=== PATIENT | female | born 1975 | race Caucasian/White ===

== ENCOUNTER → 2017-09-02 | Outpatient (CLI) | payer MEDICAID ==
--- NOTE | 2017-09-02 12:40 | RADIOLOGY REPORT (SQ) ---
EXAM DESCRIPTION: U/S ABDOMEN LIMITED W/O DOP COMPLETED DATE/TIME: 09/02/2017 11:46 am REASON FOR STUDY: R11.0 NAUSEA R10.13 EPIGASTRIC PAIN R10.13 EPIGASTRIC PAIN R11.0 NAUSEA COMPARISON: None. TECHNIQUE: Dynamic and static grayscale images acquired of the abdomen and recorded on PACS. Additio nal selected color Doppler and spectral images recorded. LIMITATIONS: None. FINDINGS: PANCREAS: Midline pancreas unremarkable. LIVER: Normal size, no masses. Liver is hypoechoic which could be seen in hepatitis or diffuse infla mmation. No biliary ductal dilatation. LIVER VASCULATURE: Normal directional flow of the main portal vein and hepatic veins. GALLBLADDER: No stones. Normal wall thickness. No pericholecystic fluid. ULTRASOUND-DETECTED MALCOLM'S SIGN: Negative. INTRAHEPATIC DUCTS AND COMMON DUCT: CBD and intrahepatic ducts normal caliber. No filling defects. INFERIOR VENA CAVA: Normal flow. AORTA: No aneurysm. RIGHT KIDNEY: Normal size. Normal echogenicity. No solid or suspicious masses. No hydronephrosis. No calcifications. PERITONEAL AND RIGHT PLEURAL SPACE: No ascites or effusions. OTHER: No other significant findings. IMPRESSION: Liver is hypoechoic which could be seen in hepatitis. No liver masses. No gross biliar y ductal dilatation. No gallstones TECHNICAL DOCUMENTATION: JOB ID: [id number] [employer]- All Rights Reserved Reading location - IP/workstation name: [email or web address]
== END ==
LOC: RAD 13:37
PROVIDERS: ATTEND Internal Medicine Gastroenterology
DX: R11.0 Nausea (principal); R10.13 Epigastric pain
CPT/HCPCS: 76705

== ENCOUNTER → 2017-09-04 | Outpatient (CLI) | payer MEDICAID ==
--- NOTE | 2017-09-04 15:28 | RADIOLOGY REPORT (SQ) ---
EXAM DESCRIPTION: NM HIDA SCAN WITH CCK COMPLETED DATE/TIME: 09/04/2017 3:11 pm REASON FOR STUDY: R11.0 NAUSEA R10.13 EPIGASTRIC PAIN R11.0 NAUSEA R10.13 EPIGASTRIC PAIN COMPARISON: None. RADIONUCLIDE AND DOSE: DOSAGE RADIONUCLIDE: 5.32 millicuries Tc99m Mebrofenin. DOSAGE CCK: 1.3 micrograms. DOSAGE MORPHINE: Not required. The route of agent administration: Intravenous TECHNIQUE: Serial imaging right upper quadrant up to 60 minutes following injection of radionuclide. CCK injected after gallbladder visualized. LIMITATIONS: None. FINDINGS: LIVER: Normal visualization without areas of photopenia. INTRAHEPATIC BILE DUCTS: Normal size and no delay in visualization. COMMON BILE DUCT: Normal without dilatation. GALLBLADDER: Normal visualization. Calculated ejection fraction of 50%. Normal range is greater th an 35%. PHYSICAL RESPONSE: Patients presenting complaint wall reproduced. OTHER: No other significant finding. IMPRESSION: NORMAL STUDY WITHOUT CYSTIC OR COMMON DUCT OBSTRUCTION. NORMAL GALLBLADDER EJECTION FRA CTION. NO EVIDENCE FOR BILIARY DYSKINESIS. TECHNICAL DOCUMENTATION: JOB ID: [id number] [employer]- All Rights Reserved Reading location - IP/workstation name: [email or web address]
== END ==
LOC: RAD 13:37
PROVIDERS: ATTEND Internal Medicine Gastroenterology
DX: R11.0 Nausea (principal); R10.13 Epigastric pain
CPT/HCPCS: 78227; J2805; A9537; Q9969

== ENCOUNTER 2017-12-16 10:46 | Emergency (ER) | payer MEDICAID ==
[2017-12-16 11:49] LABS: APPEARANCE,URINE SLIGHTLY-CLOUDY; BILIRUBIN,URINE NEGATIVE (NEGATIVE); COLOR,URINE STRAW; GLUCOSE, URINE NEGATIVE (NEGATIVE); KETONES,URINE NEGATIVE (NEGATIVE); LEUKOCYTE ESTERASE,URINE NEGATIVE (NEGATIVE); NITRITE,URINE NEGATIVE (NEGATIVE); PROTEIN,URINE NEGATIVE (NEGATIVE); URINE SPECIFIC GRAVITY 1.004; UROBILINOGEN,URINE NEGATIVE mg/dL (<2.0)
[2017-12-16] MEDS ORDERED: ONDANSETRON HCL INJ/PF 4 MG/2 ML SDV IV ONE ×2 (13:11→19:39)
[2017-12-16] MEDS ORDERED: DICYCLOMINE HCL INJ 20 MG/2 ML AMPULE IM ONE (13:11)
--- NOTE | 2017-12-16 13:13 | ER Document Report ---
ED Medical Screen (RME) - General Chief Complaint: Lower Abdominal Pain Stated Complaint: ABDOMINAL PAIN Time Seen by Provider: 12/16/17 13:05 TRAVEL OUTSIDE OF THE [place] IN LAST 30 DAYS: No - HPI Notes: 12/16/17 13:12 History of diverticulitis with having right lower quadrant abdominal pain last 2 days. Did take leftover Cipro and Flagyl will be prior to arrival. - Related Data Allergies/Adverse Reactions: IVP dye Adverse Reaction (Uncoded 12/16/17 11:11) Past Medical History - Social History Chew tobacco use (# tins/day): No Frequency of alcohol use: None Drug Abuse: None - Past Medical History Cardiac Medical History: Denies: Hx Coronary Artery Disease, Hx Heart Attack, Hx Hypertension Pulmonary Medical History: Denies: Hx Asthma, Hx Bronchitis, Hx COPD, Hx Pneumonia Neurological Medical History: Denies: Hx Cerebrovascular Accident, Hx Seizures Renal/ Medical History: Denies: Hx Peritoneal Dialysis Musculoskeltal Medical History: Denies Hx Arthritis Past Surgical History: Denies: Hx Hysterectomy, Hx Pacemaker - Immunizations Hx Diphtheria, Pertussis, Tetanus Vaccination: Yes Review of Systems - Review of Systems Constitutional: No symptoms reported EENT: No symptoms reported Cardiovascular: No symptoms reported Respiratory: No symptoms reported Gastrointestinal: Abdominal pain Genitourinary: No symptoms reported Female Genitourinary: No symptoms reported Musculoskeletal: No symptoms reported Skin: No symptoms reported Hematologic/Lymphatic: No symptoms reported Neurological/Psychological: No symptoms reported Physical Exam - Vital signs Vitals: Temp Pulse Resp BP Pulse Ox 98.3 F 86 16 118/94 H 99 12/16/17 11:18 12/16/17 11:18 12/16/17 11:18 12/16/17 11:18 12/16/17 11:18 - Cardiovascular Rhythm: Regular Heart sounds: Normal auscultation Course - Vital Signs Vital signs: Temp Pulse Resp BP Pulse Ox 98.3 F 86 16 118/94 H 99 12/16/17 11:18 12/16/17 11:18 12/16/17 11:18 12/16/17 11:18 12/16/17 11:18 Doctor's Discharge - Discharge Referrals: AIME TY MD [Primary Care Provider] - Follow up as needed
[2017-12-16] MEDS ORDERED: NORMAL SALINE 1000 ML 1,000 ML IV ONE (13:52)
[2017-12-16 14:08] LABS: ABSOLUTE EOSINOPHILS # (AUTO) 0.1 10^3/uL (0.0-0.6); ABSOLUTE LYMPHOCYTES (AUTO) 2.1 10^3/uL (0.5-4.7); ABSOLUTE MONOCYTES (AUTO) 0.5 10^3/uL (0.1-1.4); ABSOLUTE NEUT (AUTO) 6.6 10^3/uL (1.7-8.2); BASOPHILS % (AUTO) 0.4 % (0-2); EOSINOPHILS % (AUTO) 1.3 % (0-6); HEMATOCRIT 37.8 % (36.0-47.0); HEMOGLOBIN 12.4 g/dL (12.0-15.5); MEAN CORPUSCULAR HEMOGLOBIN 24.4 pg (27.0-33.4); MEAN CORPUSCULAR HGB CONC 32.8 g/dL (32.0-36.0); MEAN CORPUSCULAR VOLUME 74 fl (80-97); MONOCYTES % (AUTO) 5.2 % (3-13); PLATELET COUNT 243 10^3/uL (150-450); RED CELL DISTRIBUTION WIDTH 14.8 % (11.5-14.0); SEGMENTED NEUTROPHILS % (AUTO) 71.1 % (42-78); TOTAL CELLS COUNTED % (AUTO) 100 %; WHITE BLOOD COUNT 9.3 10^3/uL (4.0-10.5)
[2017-12-16 14:17] LABS: ALANINE AMINOTRANSFERASE 18 U/L (9-52); ALBUMIN 3.7 g/dL (3.5-5.0); ALKALINE PHOSPHATASE 46 U/L (38-126); ANION GAP 9 (5-19); ASPARTATE AMINO TRANSFERASE 16 U/L (14-36); BILIRUBIN,DIRECT 0.2 mg/dL (0.0-0.4); BILIRUBIN,TOTAL 0.5 mg/dL (0.2-1.3); BLOOD UREA NITROGEN 6 mg/dL (7-20); CALCIUM 8.8 mg/dL (8.4-10.2); CARBON DIOXIDE 21 mmol/L (22-30); CHLORIDE 111 mmol/L (98-107); GLUCOSE 110 mg/dL (75-110); POTASSIUM 4.2 mmol/L (3.6-5.0); SODIUM 141.1 mmol/L (137-145); TOTAL PROTEIN 6.6 g/dL (6.3-8.2)
[2017-12-16] MEDS ORDERED: FENTANYL CITRATE INJ/PF 100 MCG/2 ML AMPUL IV ONE (16:01)
[2017-12-16] MEDS ORDERED: DIPHENHYDRAMINE HCL 50 MG/ML VIAL IV ONE (16:16)
[2017-12-16] MEDS ORDERED: METHYLPREDNISOLONE INJ 125 MG/2 ML SDV IV ONE (16:16)
[2017-12-16] MEDS ORDERED: FAMOTIDINE INJ/PF 20 MG/2 ML SDV IV ONE (16:16)
--- NOTE | 2017-12-16 18:20 | RADIOLOGY REPORT (SQ) ---
EXAM DESCRIPTION: CT ABD/PELVIS WITH IV ONLY COMPLETED DATE/TIME: 12/16/2017 6:01 pm REASON FOR STUDY: rlq pain COMPARISON: None. TECHNIQUE: CT scan of the abdomen and pelvis performed using helical scanning technique with dynamic intravenous contrast injection. No oral contrast. Images reviewed with lung, soft tissue, and bone windows. Reconstructed coronal and sagittal MPR images reviewed. Delayed images for evaluation of the urinary system also acquired. All images stored on PACS. All CT scanners at this facility use dose modulation, iterative reconstruction, and/or weight based d osing when appropriate to reduce radiation dose to as low as reasonably achievable (ALARA). [facility]: Dose Right [facility]: CareDose [facility]: Dose Right [facility]: Teradose 4D [facility]: Intcomex CONTRAST TYPE AND DOSE: contrast/concentration: Isovue 350.00 mg/ml; Total Contrast Delivered: 69.0 ml; Total Saline Delivered: 45.0 ml RENAL FUNCTION: BUN 6 creatinine 0.6 RADIATION DOSE: CT Rad equipment meets quality standard of care and radiation dose reduction techniq ues were employed. CTDIvol: 5.9 - 7.5 mGy. DLP: 668 mGy-cm.. LIMITATIONS: None. FINDINGS: LOWER CHEST: No significant findings. No nodules or infiltrates. LIVER: Normal size. No masses. No dilated ducts. SPLEEN: Normal size. No focal lesions. PANCREAS: No masses. No significant calcifications. No adjacent inflammation or peripancreatic fluid collections. Pancreatic duct not dilated. GALLBLADDER: No identified stones by CT criteria. No inflammatory changes to suggest cholecystitis. ADRENAL GLANDS: No significant masses or asymmetry. RIGHT KIDNEY AND URETER: No solid masses. No significant calcifications. No hydronephrosis or hyd roureter. LEFT KIDNEY AND URETER: No solid masses. No significant calcifications. No hydronephrosis or hydr oureter. AORTA AND VESSELS: No aneurysm. No dissection. Renal arteries, SMA, celiac without stenosis. RETROPERITONEUM: No retroperitoneal adenopathy, hemorrhage or masses. BOWEL AND PERITONEAL CAVITY: There are questionably mild inflammatory changes associated with the cec um. A small amount of fluid is seen over the inferior aspect of the anterior renal fascia on the lef t. See image 46. APPENDIX: The appendix can be seen and is normal. PELVIS: No mass. No free fluid. Normal bladder. ABDOMINAL WALL: No masses. No hernias. BONES: No significant or acute findings. OTHER: No other significant finding. IMPRESSION: There are inflammatory changes in the right lower quadrant as described. The appendix a ppears to be normal, however. Possible colitis. Possible diverticulitis. TECHNICAL DOCUMENTATION: JOB ID: [id number] Quality ID # [id number]: Final reports with documentation of one or more dose reduction techniques (e.g., Au tomated exposure control, adjustment of the mA and/or kV according to patient size, use of iterative reconstruction technique) 2010 [employer]- All Rights Reserved Reading location - IP/workstation name: [email or web address]
[2017-12-16] MEDS ORDERED: METRONIDAZOLE 500 MG TABLET PO ONE (19:39)
[2017-12-16] MEDS ORDERED: MORPHINE SULFATE 10 MG/ML INJ IV ONE (19:39)
[2017-12-16] MEDS ORDERED: CIPROFLOXACIN HCL 500 MG TABLET PO ONE (19:39)
[2017-12-16 19:42] VITALS: BP 115/67
[2017-12-16] MEDS ORDERED: HYDROCODONE/ACETAMINOPHEN 5-325 MG (6 TAB/ER DISP) PO PRN (20:10)
[2017-12-16] MEDS ORDERED: ONDANSETRON ODT 4 MG TAB (6 TAB/ER DISP) PO PRN (20:10)
--- NOTE | 2017-12-16 20:15 | ER Document Report ---
ED General - General Chief Complaint: Lower Abdominal Pain Stated Complaint: ABDOMINAL PAIN Time Seen by Provider: 12/16/17 13:05 Notes: Patient with chief complaint of right lower quadrant pain 2 days. Patient denies any nausea, vomiting or diarrhea. Patient does report reduced appetite. Patient denies any fevers, dysuria or vaginal discharge. Patient reports the pain feels like a sharp stabbing pain. TRAVEL OUTSIDE OF THE [place] IN LAST 30 DAYS: No - Related Data Allergies/Adverse Reactions: Iodinated Contrast- Oral and IV Dye Adverse Reaction (Unknown, Verified 10:29) Past Medical History - General Information source: Patient - Social History Smoking Status: Never Smoker Chew tobacco use (# tins/day): No Frequency of alcohol use: None Drug Abuse: None Family History: Reviewed & Not Pertinent Patient has suicidal ideation: No Patient has homicidal ideation: No - Medical History Medical History: Negative - Past Medical History Cardiac Medical History: Denies: Hx Coronary Artery Disease, Hx Heart Attack, Hx Hypertension Pulmonary Medical History: Denies: Hx Asthma, Hx Bronchitis, Hx COPD, Hx Pneumonia Neurological Medical History: Denies: Hx Cerebrovascular Accident, Hx Seizures Renal/ Medical History: Denies: Hx Peritoneal Dialysis Musculoskeletal Medical History: Denies Hx Arthritis Surgical Hx: Negative Past Surgical History: Denies: Hx Hysterectomy, Hx Pacemaker - Immunizations Hx Diphtheria, Pertussis, Tetanus Vaccination: Yes Review of Systems - Review of Systems Constitutional: No symptoms reported EENT: No symptoms reported Cardiovascular: No symptoms reported Respiratory: No symptoms reported Gastrointestinal: See HPI Genitourinary: No symptoms reported Female Genitourinary: No symptoms reported Musculoskeletal: No symptoms reported Skin: No symptoms reported Hematologic/Lymphatic: No symptoms reported Neurological/Psychological: No symptoms reported Physical Exam - Vital signs Vitals: Temp Pulse Resp BP Pulse Ox 98.3 F 86 16 118/94 H 99 12/16/17 11:18 12/16/17 11:18 12/16/17 11:18 12/16/17 11:18 12/16/17 11:18 - Notes Notes: PHYSICAL EXAMINATION: GENERAL: Well-appearing, well-nourished and in no acute distress. HEAD: Atraumatic, normocephalic. EYES: Pupils equal round and reactive to light, extraocular movements intact, conjunctiva are normal. ENT: Nares patent, oropharynx clear without exudates. Moist mucous membranes. NECK: Normal range of motion, supple without lymphadenopathy LUNGS: Breath sounds clear to auscultation bilaterally and equal. No wheezes rales or rhonchi. HEART: Regular rate and rhythm without murmurs ABDOMEN: Soft, nondistended abdomen. Mild tenderness to palpation to the right lower and right upper quadrant. No guarding, no rebound. No masses appreciated. Female : No CVA tenderness Musculoskeletal: Normal range of motion, no pitting or edema. No cyanosis. NEUROLOGICAL: Cranial nerves grossly intact. Normal speech, normal gait. Normal sensory, motor exams PSYCH: Normal mood, normal affect. SKIN: Warm, Dry, normal turgor, no rashes or lesions noted. Course - Re-evaluation Re-evalutation: CBC, CMP and lipase are all within normal limits. Urine is negative for any infection. CT abdomen pelvis shows mild colitis. Appendix appears normal. Patient is tolerating p.o. well in the emergency department and has not vomited. Plan will be to discharge patient home with strict ED return precautions. Patient verbalizes understanding and is agreeable to same. - Vital Signs Vital signs: Temp Pulse Resp BP Pulse Ox 98.0 F 94 18 115/67 100 12/16/17 19:41 12/16/17 19:41 12/16/17 19:41 12/16/17 19:41 12/16/17 19:41 - Laboratory Result Diagrams: 12/16/17 13:48 12/16/17 13:48 Laboratory results interpreted by me: 12/16/17 12/16/17 13:48 13:48 MCV 74 L MCH 24.4 L RDW 14.8 H Chloride 111 H Carbon Dioxide 21 L BUN 6 L Discharge - Discharge Clinical Impression: Abdominal pain, Colitis Condition: Stable Disposition: HOME, SELF-CARE Additional Instructions: Colitis, Nonspecific Colitis is an inflammatory disease of the large intestine which affects the lining of the bowel. The cause is uncertain, though it is often caused by an infection. In some cases, the symptoms resolve and can return again in the future. Colitis is characterized by abdominal pain, often nausea and vomiting, and either diarrhea or difficulty with bowel movements. Sometimes blood will be present in the bowel movements. Fever is often present as well. Milder cases of colitis can be managed as an outpatient with medications for nausea and vomiting and pain, oral fluid therapy, and perhaps antibiotics, if a bacterial origin is suspected. Antidiarrhea medicine should usually be avoided in colitis. If you have increasing abdominal pain, repeated vomiting, fever, rectal bleeding, or worsening diarrhea, you should return for re-evaluation. Please return to the emergency department immediately if you develop fever, persistent vomiting, blood in your stool or worsening abdominal pain. Please follow a clear liquid diet for the next 1-2 days, then a bland diet following that. Please take the antibiotics as prescribed, complete the entire course even if you are feeling better. Use the pain and nausea medications as prescribed. Please follow-up with your cooker mechanic, call them tomorrow to see when they would like to see you. Referrals: AIME TY MD [Primary Care Provider] - Follow up as needed
== END 2017-12-16 20:22 | disposition home or self-care (01) ==
LOC: ER 10:46
DX: K52.9 Noninfective gastroenteritis and colitis, unspecified (principal); R10.31 Right lower quadrant pain; R10.811 Right upper quadrant abdominal tenderness; R10.813 Right lower quadrant abdominal tenderness; R63.0 Anorexia; Z91.041 Radiographic dye allergy status
CPT/HCPCS: 96376; 99284; 96372; 96361; 96374; 96375; 36415; 87086; 83690; 85025; 81025; 80053; 81001; 74177; J3490 ×2; J0500; J1200; J3010; J2930; J2270; J2405; J7030; S0028

== ENCOUNTER 2017-12-23 13:59 | Inpatient (IN) | payer MEDICAID ==
[2017-12-23] MEDS ORDERED: RINGERS SOLUTION,LACTATED 1,000 ML IV ONE (15:19)
[2017-12-23] MEDS ORDERED: ONDANSETRON HCL INJ/PF 4 MG/2 ML SDV IV ONE (15:22)
--- NOTE | 2017-12-23 15:23 | ER Document Report ---
ED General - General Chief Complaint: Abdominal Pain Stated Complaint: ABDOMINAL PAIN Time Seen by Provider: 12/23/17 15:18 Mode of Arrival: Ambulatory Information source: Patient Notes: She presents emergency department with complaints of abdominal pain nausea. Patient reports recently diagnosed with diverticulitis. Patient was sent over by her mechanical energy engineer, Dr. Daley for admission IV fluids antibiotics. She reports she has been on Cipro and Flagyl but she still in pain. Patient reports she been nausea and vomiting though she has been following a liquid diet. Patient does report she has had to eat some crackers to take with the medication. TRAVEL OUTSIDE OF THE [place] IN LAST 30 DAYS: No - HPI Patient complains to provider of: abdominal pain, diverticulitis Onset: Other Onset/Duration: Persistent Quality of pain: Achy, Pressure, Sharp Severity: Severe Pain Level: 4 Associated symptoms: Nausea, Vomiting Exacerbated by: Denies Relieved by: Denies Similar symptoms previously: Yes Recently seen / treated by doctor: Yes - Related Data Allergies/Adverse Reactions: IVP dye Adverse Reaction (Uncoded 12/16/17 11:11) Past Medical History - General Information source: Patient Last Menstrual Period: unsure-reports she had a BTL and has not had sex. - Social History Smoking Status: Unknown if Ever Smoked Cigarette use (# per day): No Frequency of alcohol use: None Drug Abuse: None Family History: Other - mother with diverticulitis Patient has suicidal ideation: No Patient has homicidal ideation: No - Past Medical History Cardiac Medical History: Denies: Hx Coronary Artery Disease, Hx Heart Attack, Hx Hypertension Pulmonary Medical History: Denies: Hx Asthma, Hx Bronchitis, Hx COPD, Hx Pneumonia Neurological Medical History: Denies: Hx Cerebrovascular Accident, Hx Seizures Renal/ Medical History: Denies: Hx Peritoneal Dialysis GI Medical History: Reports: Hx Diverticulitis Musculoskeletal Medical History: Denies Hx Arthritis Past Surgical History: Reports: Hx Tubal Ligation. Denies: Hx Hysterectomy, Hx Pacemaker - Immunizations Hx Diphtheria, Pertussis, Tetanus Vaccination: Yes Review of Systems - Review of Systems Notes: Review HPI for review of systems., All other systems negative Physical Exam - Vital signs Vitals: Temp Pulse Resp BP Pulse Ox 98.5 F 94 14 112/82 99 12/23/17 14:06 12/23/17 14:06 12/23/17 14:06 12/23/17 14:06 12/23/17 14:06 - Notes Notes: PHYSICAL EXAMINATION: GENERAL: nontoxic looking HEAD: Atraumatic, normocephalic. EYES: extraocular movements intact, sclera anicteric, conjunctiva are normal. ENT: nares patent. Moist mucous membranes. NECK: Normal range of motion, supple without lymphadenopathy LUNGS: CTAB and equal. No wheezes rales or rhonchi. HEART: Regular rate and rhythm without murmurs ABDOMEN: Soft, generalized tenderness. No guarding, no rebound EXTREMITIES: Normal range of motion, no pitting edema. No cyanosis. NEUROLOGICAL: Cranial nerves grossly intact. Normal sensory/motor exams. PSYCH: Normal mood, normal affect. SKIN: Warm, Dry, normal turgor, no rashes or lesions noted Course - Re-evaluation Re-evalutation: 12/23/17 patient has been sipping po fluids she brought with her. she denies vomiting at this time. Instructed on admission. Patient is aware reports Dr. Oneill told her she would be admitted. - Vital Signs Vital signs: Temp Pulse Resp BP Pulse Ox 98.5 F 94 14 112/82 99 12/23/17 14:06 12/23/17 14:06 12/23/17 14:06 12/23/17 14:06 12/23/17 14:06 - Laboratory Result Diagrams: 12/23/17 15:42 12/23/17 15:42 Laboratory results interpreted by me: 12/23/17 15:42 RBC 5.52 H MCV 75 L MCH 24.3 L RDW 14.4 H - Diagnostic Test Radiology reviewed: Reports reviewed - ct report today- diverticulitis - Consults obayomi Time consulted: 16:45 Reason for consultation: 12/23/17 17:42 diverticulitis, admission -consult for dr daley Consulted provider: will see as inpatient Discharge - Discharge Clinical Impression: Diverticulitis Condition: Stable Disposition: ADMITTED INPATIENT Admitting Provider: Hospitalist - obayomi Unit Admitted: Medical Floor
[2017-12-23 16:04] LABS: ABSOLUTE BASOPHILS # (AUTO) 0.1 10^3/uL (0.0-0.2); ABSOLUTE EOSINOPHILS # (AUTO) 0.2 10^3/uL (0.0-0.6); ABSOLUTE LYMPHOCYTES (AUTO) 2.6 10^3/uL (0.5-4.7); ABSOLUTE MONOCYTES (AUTO) 0.8 10^3/uL (0.1-1.4); ABSOLUTE NEUT (AUTO) 4.8 10^3/uL (1.7-8.2); BASOPHILS % (AUTO) 0.7 % (0-2); EOSINOPHILS % (AUTO) 2.6 % (0-6); HEMATOCRIT 41.5 % (36.0-47.0); HEMOGLOBIN 13.4 g/dL (12.0-15.5); LYMPHOCYTES % (AUTO) 30.9 % (13-45); MEAN CORPUSCULAR HEMOGLOBIN 24.3 pg (27.0-33.4); MEAN CORPUSCULAR HGB CONC 32.3 g/dL (32.0-36.0); MEAN CORPUSCULAR VOLUME 75 fl (80-97); MONOCYTES % (AUTO) 9.2 % (3-13); PLATELET COUNT 362 10^3/uL (150-450); RED BLOOD COUNT 5.52 10^6/uL (3.72-5.28); RED CELL DISTRIBUTION WIDTH 14.4 % (11.5-14.0); SEGMENTED NEUTROPHILS % (AUTO) 56.6 % (42-78); TOTAL CELLS COUNTED % (AUTO) 100 %; WHITE BLOOD COUNT 8.5 10^3/uL (4.0-10.5)
[2017-12-23 16:10] LABS: ALANINE AMINOTRANSFERASE 17 U/L (9-52); ALKALINE PHOSPHATASE 48 U/L (38-126); ANION GAP 14 (5-19); ASPARTATE AMINO TRANSFERASE 21 U/L (14-36); BILIRUBIN,DIRECT 0.3 mg/dL (0.0-0.4); BILIRUBIN,TOTAL 0.3 mg/dL (0.2-1.3); BLOOD UREA NITROGEN 11 mg/dL (7-20); CALCIUM 9.3 mg/dL (8.4-10.2); CARBON DIOXIDE 25 mmol/L (22-30); CHLORIDE 105 mmol/L (98-107); GLUCOSE 99 mg/dL (75-110); POTASSIUM 4.5 mmol/L (3.6-5.0); SODIUM 143.5 mmol/L (137-145); TOTAL PROTEIN 7.3 g/dL (6.3-8.2)
[2017-12-23] MEDS ORDERED: PIPERACILLIN/TAZOBACTAM 3.375 GM VIAL IV ONE (16:52)
[2017-12-23] MEDS ORDERED: MORPHINE SULFATE 10 MG/ML INJ IV ONE (16:52)
[2017-12-23] MEDS ORDERED: IPRATROPIUM/ALBUTEROL 0.5-2.5 MG/3 ML AMPUL NEB PRN (17:07)
[2017-12-23] MEDS ORDERED: TEMAZEPAM 7.5 MG CAPSULE PO PRN (17:07)
[2017-12-23] MEDS ORDERED: MAGNESIUM HYDROXIDE SUSP 30 ML UDCUP PO PRN (17:07)
[2017-12-23] MEDS ORDERED: ACETAMINOPHEN 325 MG TABLET PO PRN (17:07)
[2017-12-23 17:47] LABS: APPEARANCE,URINE SLIGHTLY-CLOUDY; BILIRUBIN,URINE NEGATIVE (NEGATIVE); COLOR,URINE YELLOW; GLUCOSE, URINE NEGATIVE (NEGATIVE); KETONES,URINE NEGATIVE (NEGATIVE); LEUKOCYTE ESTERASE,URINE SMALL (NEGATIVE); NITRITE,URINE NEGATIVE (NEGATIVE); PROTEIN,URINE NEGATIVE (NEGATIVE); URINE SPECIFIC GRAVITY 1.009; UROBILINOGEN,URINE NEGATIVE mg/dL (<2.0)
[2017-12-23] MEDS ORDERED: METRONIDAZOLE 500 MG/NS RTU 500 MG/100 ML RTUPB IV SCH (18:00)
[2017-12-23] MEDS ORDERED: (PENDING PHARMACY ID) (Alprazolam [Alprazolam] 1 MG) PO PRN (18:24)
--- NOTE | 2017-12-23 18:24 | PDOC H&P ---
History of Present Illness Admission Date/PCP: 12/23/17 16:44 JOVANY MENDOZA MD Patient complains of: Abdominal pain, nausea and vomiting x 1 week History of Present Illness: EDITA FLAHERTY is a 42 year old female This patient presents emergency room with complaints of abdominal pain nausea and vomiting. Patient states she was diagnosed with diverticulitis about a week ago. She has been on oral Cipro and Flagyl but apparently has made little progress. She had a CAT scan done today which shows a persistent inflammation along the ascending colon in the area of diverticulitis. There is no abscess or free air patient was sent for admission for intravenous antibiotics due to failure of outpatient regimen Past Medical History Cardiac Medical History: Denies: Coronary Artery Disease, Myocardial Infarction, Hypertension Pulmonary Medical History: Denies: Asthma, Bronchitis, Chronic Obstructive Pulmonary Disease (COPD), Pneumonia Neurological Medical History: Denies: Seizures GI Medical History: Reports: Diverticulitis Musculoskeltal Medical History: Denies: Arthritis Hematology: Denies: Anemia Past Surgical History Past Surgical History: Reports: Section, Tubal Ligation Denies: Hysterectomy, Pacemaker Social History Information Source: Patient Smoking Status: Smoker,Current Status Unk Hx Recreational Drug Use: No - Advance Directive Resuscitation Status: Full Code Family History Family History: Other - mother with diverticulitis Parental Family History Reviewed: Yes Children Family History Reviewed: Yes Sibling(s) Family History Reviewed.: Yes Medication/Allergy Home Medications: Alprazolam [Alprazolam] 1 mg PO BIDP PRN 12/23/17 Dextroamphetamine/Amphetamine [Adderall 20 mg Tablet] 10 mg PO BID 12/23/17 Esomeprazole Magnesium [Nexium] 40 mg PO DAILY 12/23/17 Ondansetron HCl [Ondansetron HCl] 4 mg PO Q8HP PRN 12/23/17 Allergies/Adverse Reactions: IVP dye Adverse Reaction (Uncoded 12/16/17 11:11) Review of Systems All systems: reviewed and no additional remarkable complaints except as stated Physical Exam Vital Signs: Temp Pulse Resp BP Pulse Ox 98.5 F 94 14 112/82 99 12/23/17 14:06 12/23/17 14:06 12/23/17 14:06 12/23/17 14:06 12/23/17 14:06 Intake & Output 12/22/17 12/23/17 12/24/17 06:59 06:59 06:59 Intake Total 1000 Balance 1000 General appearance: PRESENT: no acute distress, well-developed, well-nourished Head exam: PRESENT: atraumatic, normocephalic Eye exam: PRESENT: conjunctiva pink, EOMI, PERRLA. ABSENT: scleral icterus Ear exam: PRESENT: normal external ear exam Mouth exam: PRESENT: moist, tongue midline Neck exam: ABSENT: carotid bruit, JVD, lymphadenopathy, thyromegaly Respiratory exam: PRESENT: clear to auscultation amee. ABSENT: rales, rhonchi, wheezes Cardiovascular exam: PRESENT: RRR. ABSENT: diastolic murmur, rubs, systolic murmur Pulses: PRESENT: normal dorsalis pedis pul Vascular exam: PRESENT: normal capillary refill GI/Abdominal exam: PRESENT: normal bowel sounds, soft, tenderness - Mild R CVAT. ABSENT: distended, guarding, mass, organolmegaly, rebound Rectal exam: PRESENT: deferred Extremities exam: PRESENT: full ROM. ABSENT: calf tenderness, clubbing, pedal edema Neurological exam: PRESENT: alert, awake, oriented to person, oriented to place , oriented to time, oriented to situation, CN II-XII grossly intact. ABSENT: motor sensory deficit Psychiatric exam: PRESENT: appropriate affect, normal mood. ABSENT: homicidal ideation, suicidal ideation Skin exam: PRESENT: dry, intact, warm. ABSENT: cyanosis, rash Results Laboratory Results: 12/23/17 17:28 Urine Color YELLOW Urine Appearance SLIGHTLY-CLOUDY Urine pH 5.0 Ur Specific [place] 1.009 Urine Protein NEGATIVE Urine Glucose (UA) NEGATIVE Urine Ketones NEGATIVE Urine Blood NEGATIVE Urine Nitrite NEGATIVE Ur Leukocyte Esterase SMALL H Urine WBC (Auto) 6 Urine RBC (Auto) 2 Assessment & Plan - Diagnosis (1) Diverticulitis Is this a current diagnosis for this admission?: Yes Plan: We will continue IV ciprofloxacin as well as Flagyl. I will place him on a high -fiber diet with low residue as patient has really been unable to eat up until now. If needed will change antibiotics to a penicillin with anaerobic coverage (2) Abdominal pain Qualifiers: Abdominal location: right lower quadrant Qualified Code(s): R10.31 - Right lower quadrant pain Is this a current diagnosis for this admission?: Yes - Time Time Spent: 30 to 50 Minutes Smoking Cessation Education: 3 to 10 minutes Medications reviewed and adjusted accordingly: Yes Anticipated discharge: Home Within: within 48 hours - Inpatient Certification Based on my medical assessment, after consideration of the patient's comorbidities, presenting symptoms, or acuity I expect that the services needed warrant INPATIENT care.: Yes Medical Necessity: Failure to Improve With Outpatient Therapy
[2017-12-23] MEDS: ENOXAPARIN SODIUM INJ 40 MG/0.4 ML DISP.SYRIN SUBCUT SCH (19:37)
[2017-12-23] MEDS: FAMOTIDINE 20 MG TABLET PO SCH (19:37)
[2017-12-23] MEDS ORDERED: ONDANSETRON 4 MG TAB.RAPDIS ONE (22:47)
[2017-12-23] MEDS: CIPROFLOXACIN 400 MG/D5W RTU 400 MG/200 ML RTUPB IV SCH (22:55)
[2017-12-23] MEDS: MORPHINE SULFATE 10 MG/ML INJ IV PRN (23:21)
[2017-12-24] MEDS: METRONIDAZOLE 500 MG/NS RTU 500 MG/100 ML RTUPB IV SCH ×4 (02:20→20:25)
[2017-12-24 05:59] LABS: HEMATOCRIT 35.3 % (36.0-47.0); MEAN CORPUSCULAR HEMOGLOBIN 24.2 pg (27.0-33.4); MEAN CORPUSCULAR VOLUME 76 fl (80-97); PLATELET COUNT 292 10^3/uL (150-450); RED BLOOD COUNT 4.67 10^6/uL (3.72-5.28); RED CELL DISTRIBUTION WIDTH 14.8 % (11.5-14.0); WHITE BLOOD COUNT 7.5 10^3/uL (4.0-10.5)
[2017-12-24 06:02] LABS: HEMOGLOBIN 11.3 g/dL (12.0-15.5)
[2017-12-24 06:17] LABS: ANION GAP 7 (5-19); BLOOD UREA NITROGEN 9 mg/dL (7-20); CALCIUM 8.5 mg/dL (8.4-10.2); CARBON DIOXIDE 24 mmol/L (22-30); CHLORIDE 111 mmol/L (98-107); GLUCOSE 86 mg/dL (75-110); POTASSIUM 4.2 mmol/L (3.6-5.0); SODIUM 141.6 mmol/L (137-145)
[2017-12-24] MEDS: OXYCODONE-ACETAMINOPHEN 5-325 MG TABLET PO PRN ×3 (08:36→20:22)
[2017-12-24] MEDS: DOCUSATE SODIUM 100 MG CAPSULE PO SCH (09:00)
[2017-12-24] MEDS: FAMOTIDINE 20 MG TABLET PO SCH ×2 (09:00→21:45)
[2017-12-24] MEDS: ENOXAPARIN SODIUM INJ 40 MG/0.4 ML DISP.SYRIN SUBCUT SCH (09:01)
[2017-12-24] MEDS ORDERED: (PENDING PHARMACY ID) (Dextroamphetamine/Amphetamine [Adderall 20 Mg Tablet] 10 MG) PO SCH (10:00)
[2017-12-24] MEDS: CIPROFLOXACIN 400 MG/D5W RTU 400 MG/200 ML RTUPB IV SCH ×2 (10:39→21:46)
--- NOTE | 2017-12-24 10:53 | PDOC PROGRESS REPORT ---
Subjective Progress Note for:: 12/24/17 Subjective:: Abdominal pain also C/o discharge vaginal Reason For Visit: DIVERTICULITIS Physical Exam Vital Signs: Temp Pulse Resp BP Pulse Ox 97.9 F 83 16 91/65 L 97 12/24/17 08:12 12/24/17 09:14 12/24/17 09:14 12/24/17 08:12 12/24/17 09:14 Intake & Output 12/23/17 12/24/17 12/25/17 06:59 06:59 06:59 Intake Total 1700 100 Balance 1700 100 Weight 62.7 kg General appearance: PRESENT: no acute distress, well-developed, well-nourished Head exam: PRESENT: atraumatic, normocephalic Eye exam: PRESENT: conjunctiva pink, EOMI, PERRLA. ABSENT: scleral icterus Ear exam: PRESENT: normal external ear exam Mouth exam: PRESENT: moist, tongue midline Neck exam: ABSENT: carotid bruit, JVD, lymphadenopathy, thyromegaly Respiratory exam: PRESENT: clear to auscultation amee. ABSENT: rales, rhonchi, wheezes Cardiovascular exam: PRESENT: RRR. ABSENT: diastolic murmur, rubs, systolic murmur Pulses: PRESENT: normal dorsalis pedis pul Vascular exam: PRESENT: normal capillary refill GI/Abdominal exam: PRESENT: normal bowel sounds, soft, tenderness - R CVAT. ABSENT: distended, guarding, mass, organolmegaly, rebound Rectal exam: PRESENT: deferred Extremities exam: PRESENT: full ROM. ABSENT: calf tenderness, clubbing, pedal edema Neurological exam: PRESENT: alert, awake, oriented to person, oriented to place , oriented to time, oriented to situation, CN II-XII grossly intact. ABSENT: motor sensory deficit Psychiatric exam: PRESENT: appropriate affect, normal mood. ABSENT: homicidal ideation, suicidal ideation Skin exam: PRESENT: dry, intact, warm. ABSENT: cyanosis, rash Results Laboratory Results: 12/24/17 05:28 12/24/17 05:28 12/23/17 12/24/17 12/24/17 17:28 05:28 05:28 WBC 7.5 RBC 4.67 Hgb 11.3 L D Hct 35.3 L MCV 76 L MCH 24.2 L MCHC 32.0 RDW 14.8 H Plt Count 292 Sodium 141.6 Potassium 4.2 Chloride 111 H Carbon Dioxide 24 Anion Gap 7 BUN 9 Creatinine 0.67 Est GFR ( Amer) > 60 Est GFR (Non-Af Amer) > 60 Glucose 86 Calcium 8.5 Urine Color YELLOW Urine Appearance SLIGHTLY-CLOUDY Urine pH 5.0 Ur Specific [place] 1.009 Urine Protein NEGATIVE Urine Glucose (UA) NEGATIVE Urine Ketones NEGATIVE Urine Blood NEGATIVE Urine Nitrite NEGATIVE Ur Leukocyte Esterase SMALL H Urine WBC (Auto) 6 Urine RBC (Auto) 2 Assessment & Plan - Diagnosis (1) Diverticulitis Is this a current diagnosis for this admission?: Yes Plan: Failed out patient regimen. Feels better on IV abx. Will continue (2) Abdominal pain Qualifiers: Abdominal location: right lower quadrant Qualified Code(s): R10.31 - Right lower quadrant pain Is this a current diagnosis for this admission?: Yes Plan: Improved - Time Time Spent with patient: 15-24 minutes Medications reviewed and adjusted accordingly: Yes Anticipated discharge: Home Within: within 48 hours - Inpatient Certification Based on my medical assessment, after consideration of the patient's comorbidities, presenting symptoms, or acuity I expect that the services needed warrant INPATIENT care.: Yes Medical Necessity: Failure to Improve With Outpatient Therapy, Need for IV Antibiotics - Plan Summary Plan Summary: will treat with Diflucan
[2017-12-24] MEDS: MORPHINE SULFATE 10 MG/ML INJ IV PRN ×3 (11:04→22:09)
[2017-12-24] MEDS: FLUCONAZOLE 100 MG TABLET PO SCH (11:18)
[2017-12-24] MEDS: NORMAL SALINE 1000 ML 1,000 ML IV PRN (13:23)
[2017-12-24] MEDS ORDERED: ONDANSETRON 4 MG TAB.RAPDIS ONE (14:18)
[2017-12-24] MEDS: ONDANSETRON 4 MG TAB.RAPDIS PO PRN (19:53)
[2017-12-25] MEDS: ALPRAZOLAM 0.5 MG TABLET PO PRN ×2 (00:02→23:17)
[2017-12-25] MEDS: METRONIDAZOLE 500 MG/NS RTU 500 MG/100 ML RTUPB IV SCH ×4 (03:17→20:49)
[2017-12-25] MEDS: ENOXAPARIN SODIUM INJ 40 MG/0.4 ML DISP.SYRIN SUBCUT SCH (10:22)
[2017-12-25] MEDS: OXYCODONE-ACETAMINOPHEN 5-325 MG TABLET PO PRN ×3 (10:22→23:18)
[2017-12-25] MEDS: FLUCONAZOLE 100 MG TABLET PO SCH (10:22)
[2017-12-25] MEDS: CIPROFLOXACIN 400 MG/D5W RTU 400 MG/200 ML RTUPB IV SCH ×2 (10:22→22:26)
[2017-12-25] MEDS: DOCUSATE SODIUM 100 MG CAPSULE PO SCH (10:22)
[2017-12-25] MEDS: FAMOTIDINE 20 MG TABLET PO SCH ×2 (10:22→22:26)
[2017-12-25] MEDS: MORPHINE SULFATE 10 MG/ML INJ IV PRN (12:27)
[2017-12-25] MEDS: ONDANSETRON 4 MG TAB.RAPDIS PO PRN (15:32)
--- NOTE | 2017-12-25 16:25 | PDOC PROGRESS REPORT ---
Subjective Progress Note for:: 12/25/17 Subjective:: Abdominal pain also C/o swelling in inguinal area Reason For Visit: DIVERTICULITIS Physical Exam Vital Signs: Temp Pulse Resp BP Pulse Ox 97.9 F 87 16 94/60 L 98 12/25/17 15:37 12/25/17 15:37 12/25/17 15:37 12/25/17 15:37 12/25/17 15:37 Intake & Output 12/24/17 12/25/17 12/26/17 06:59 06:59 06:59 Intake Total 700 1700 100 Balance 700 1700 100 Weight 62.7 kg 63.7 kg General appearance: PRESENT: no acute distress, well-developed, well-nourished Head exam: PRESENT: atraumatic, normocephalic Eye exam: PRESENT: conjunctiva pink, EOMI, PERRLA. ABSENT: scleral icterus Ear exam: PRESENT: normal external ear exam Mouth exam: PRESENT: moist, tongue midline Neck exam: ABSENT: carotid bruit, JVD, lymphadenopathy, thyromegaly Respiratory exam: PRESENT: clear to auscultation amee. ABSENT: rales, rhonchi, wheezes Cardiovascular exam: PRESENT: RRR, +S1, +S2. ABSENT: diastolic murmur, rubs, systolic murmur Pulses: PRESENT: normal dorsalis pedis pul Vascular exam: PRESENT: normal capillary refill GI/Abdominal exam: PRESENT: normal bowel sounds, soft. ABSENT: distended, guarding, mass, organolmegaly, rebound, tenderness Rectal exam: PRESENT: deferred Gentrourinary exam: PRESENT: other - R vulva swelling Extremities exam: PRESENT: full ROM. ABSENT: calf tenderness, clubbing, pedal edema Neurological exam: PRESENT: alert, awake, oriented to person, oriented to place , oriented to time, oriented to situation, CN II-XII grossly intact. ABSENT: motor sensory deficit Psychiatric exam: PRESENT: appropriate affect, normal mood. ABSENT: homicidal ideation, suicidal ideation Skin exam: PRESENT: dry, intact, warm. ABSENT: cyanosis, rash Results Laboratory Results: 12/24/17 05:28 12/24/17 05:28 Assessment & Plan - Diagnosis (1) Diverticulitis Is this a current diagnosis for this admission?: Yes Plan: Continue with IV Flagyl and Cipro, I think it is reasonable to treat for at least 3 days of IV antibiotics and explained to patient that I expect her to be ready tomorrow for discharge. Will obtain follow-up CBC in a.m. Patient does say that she has some pain when she eats but no nausea vomiting and abdominal exam was benign (2) Folliculitis Is this a current diagnosis for this admission?: Yes Plan: Around the vulval vaginaarea. It was more like a folliculitis. Will start on Bactrim considering that she had been on Cipro and Flagyl for a couple of weeks and states she has had the folliculitis since then. - Time Time Spent with patient: 15-24 minutes Medications reviewed and adjusted accordingly: Yes Anticipated discharge: Home Within: within 24 hours - Inpatient Certification Based on my medical assessment, after consideration of the patient's comorbidities, presenting symptoms, or acuity I expect that the services needed warrant INPATIENT care.: Yes Medical Necessity: Need for Pain Control, Need for IV Antibiotics
[2017-12-25] MEDS: SULFAMETHOXAZOLE/TRIMETHOPRIM 800-160 MG TABLET PO SCH (17:56)
[2017-12-25] MEDS: NORMAL SALINE 1000 ML 1,000 ML IV PRN (22:27)
[2017-12-26] MEDS: METRONIDAZOLE 500 MG/NS RTU 500 MG/100 ML RTUPB IV SCH ×2 (03:14→10:38)
[2017-12-26 08:15] LABS: ABSOLUTE BASOPHILS # (AUTO) 0.1 10^3/uL (0.0-0.2); ABSOLUTE EOSINOPHILS # (AUTO) 0.3 10^3/uL (0.0-0.6); ABSOLUTE LYMPHOCYTES (AUTO) 2.6 10^3/uL (0.5-4.7); ABSOLUTE MONOCYTES (AUTO) 0.8 10^3/uL (0.1-1.4); ABSOLUTE NEUT (AUTO) 3.4 10^3/uL (1.7-8.2); BASOPHILS % (AUTO) 1.2 % (0-2); EOSINOPHILS % (AUTO) 4.8 % (0-6); HEMATOCRIT 36.1 % (36.0-47.0); HEMOGLOBIN 11.8 g/dL (12.0-15.5); LYMPHOCYTES % (AUTO) 36.7 % (13-45); MEAN CORPUSCULAR HEMOGLOBIN 24.7 pg (27.0-33.4); MEAN CORPUSCULAR HGB CONC 32.7 g/dL (32.0-36.0); MEAN CORPUSCULAR VOLUME 76 fl (80-97); MONOCYTES % (AUTO) 10.5 % (3-13); RED BLOOD COUNT 4.78 10^6/uL (3.72-5.28); RED CELL DISTRIBUTION WIDTH 14.8 % (11.5-14.0); SEGMENTED NEUTROPHILS % (AUTO) 46.8 % (42-78); TOTAL CELLS COUNTED % (AUTO) 100 %; WHITE BLOOD COUNT 7.2 10^3/uL (4.0-10.5)
[2017-12-26 08:33] LABS: PLATELET COUNT 249 10^3/uL (150-450)
[2017-12-26] MEDS: CIPROFLOXACIN 400 MG/D5W RTU 400 MG/200 ML RTUPB IV SCH (10:24)
[2017-12-26] MEDS: DOCUSATE SODIUM 100 MG CAPSULE PO SCH (10:25)
[2017-12-26] MEDS: SULFAMETHOXAZOLE/TRIMETHOPRIM 800-160 MG TABLET PO SCH (10:25)
[2017-12-26] MEDS: FLUCONAZOLE 100 MG TABLET PO SCH (10:25)
[2017-12-26] MEDS: ENOXAPARIN SODIUM INJ 40 MG/0.4 ML DISP.SYRIN SUBCUT SCH (10:25)
[2017-12-26] MEDS: FAMOTIDINE 20 MG TABLET PO SCH (10:26)
--- NOTE | 2017-12-26 10:34 | PDOC DISCHARGE SUMMARY ---
General - Admit/Disc Date/PCP Admission Date/Primary Care Provider: 12/23/17 17:07 JOVANY MENDOZA MD Discharge Date: 12/26/17 - Discharge Diagnosis (1) Diverticulitis Is this a current diagnosis for this admission?: Yes (2) Folliculitis Is this a current diagnosis for this admission?: Yes - Additional Information Resuscitation Status: Full Code Discharge Diet: As Tolerated Discharge Activity: Activity As Tolerated Prescriptions: Ciprofloxacin HCl [Cipro 750 mg Tablet] 750 mg PO BID #10 tablet Fluconazole [Diflucan 100 mg Tablet] 100 mg PO DAILY #3 tablet Metronidazole [Flagyl 500 mg Tablet] 500 mg PO TID #10 tablet Sulfamethoxazole/Trimethoprim [Septra-Ds 800-160 mg Tablet] 1 tab PO BID #8 tablet Home Medications: Alprazolam 1 mg PO BIDP PRN 12/23/17 Dextroamphetamine/Amphetamine [Adderall 20 mg Tablet] 10 mg PO BID 12/23/17 Esomeprazole Magnesium [Nexium] 40 mg PO DAILY 12/23/17 Ondansetron HCl 4 mg PO Q8HP PRN 12/23/17 Ciprofloxacin HCl [Cipro 750 mg Tablet] 750 mg PO BID #10 tablet 12/26/17 Docusate Sodium [Colace 100 mg Capsule] 100 mg PO DAILY capsule 12/26/17 Fluconazole [Diflucan 100 mg Tablet] 100 mg PO DAILY #3 tablet 12/26/17 Metronidazole [Flagyl 500 mg Tablet] 500 mg PO TID #10 tablet 12/26/17 Sulfamethoxazole/Trimethoprim [Septra-Ds 800-160 mg Tablet] 1 tab PO BID #8 tablet 12/26/17 History of Present Illness History of Present Illness: EDITA FLAHERTY is a 42 year old female This patient presents emergency room with complaints of abdominal pain nausea and vomiting. Patient states she was diagnosed with diverticulitis about a week ago. She has been on oral Cipro and Flagyl but apparently has made little progress. She had a CAT scan done today which shows a persistent inflammation along the ascending colon in the area of diverticulitis. There is no abscess or free air patient was sent for admission for intravenous antibiotics due to failure of outpatient regimen Hospital Course Hospital Course: Patient was admitted with abdominal pain felt to be secondary to diverticulitis after failing outpatient treatment with Flagyl and Cipro for 7 days. She was started on intravenous Flagyl and Cipro. She had no episodes of vomiting, nausea or diarrhea while in hospital and she tolerated IV antibiotics well. She remained afebrile and was able to tolerate her diet pretty well. She appears to have benefited maximally from her hospital stay at this time and it is felt that she can complete her course of antibiotics at home for a 14 day course of antibiotics. Patient appeared to have a folliculitis and so she was started on oral Bactrim. She was also treated with Diflucan for candidiasis. At this time patient is hemodynamically stable she is been discharged home Physical Exam Vital Signs: Temp Pulse Resp BP Pulse Ox 98.0 F 71 18 94/57 L 95 12/26/17 07:21 12/26/17 07:21 12/26/17 07:21 12/26/17 07:21 12/26/17 07:21 Intake & Output 12/25/17 12/26/17 12/27/17 06:59 06:59 06:59 Intake Total 2700 700 Balance 2700 700 Weight 63.7 kg General appearance: PRESENT: no acute distress, well-developed, well-nourished Head exam: PRESENT: atraumatic, normocephalic Eye exam: PRESENT: conjunctiva pink, EOMI, PERRLA. ABSENT: scleral icterus Ear exam: PRESENT: normal external ear exam Mouth exam: PRESENT: moist, tongue midline Neck exam: ABSENT: carotid bruit, JVD, lymphadenopathy, thyromegaly Respiratory exam: PRESENT: clear to auscultation amee. ABSENT: rales, rhonchi, wheezes Cardiovascular exam: PRESENT: RRR. ABSENT: diastolic murmur, rubs, systolic murmur Pulses: PRESENT: normal dorsalis pedis pul Vascular exam: PRESENT: normal capillary refill GI/Abdominal exam: PRESENT: normal bowel sounds, soft. ABSENT: distended, guarding, mass, organolmegaly, rebound, tenderness Rectal exam: PRESENT: deferred Extremities exam: PRESENT: full ROM. ABSENT: calf tenderness, clubbing, pedal edema Neurological exam: PRESENT: alert, awake, oriented to person, oriented to place , oriented to time, oriented to situation, CN II-XII grossly intact. ABSENT: motor sensory deficit Psychiatric exam: PRESENT: appropriate affect, normal mood. ABSENT: homicidal ideation, suicidal ideation Skin exam: PRESENT: dry, intact, warm. ABSENT: cyanosis, rash Results Laboratory Results: 12/26/17 06:25 12/24/17 05:28 12/26/17 06:25 WBC 7.2 RBC 4.78 Hgb 11.8 L Hct 36.1 MCV 76 L MCH 24.7 L MCHC 32.7 RDW 14.8 H Plt Count 249 Seg Neutrophils % 46.8 Lymphocytes % 36.7 Monocytes % 10.5 Eosinophils % 4.8 Basophils % 1.2 Absolute Neutrophils 3.4 Absolute Lymphocytes 2.6 Absolute Monocytes 0.8 Absolute Eosinophils 0.3 Absolute Basophils 0.1 Qualifiers - * PATIENT BEING DISCHARGED WITH ANY OF THE FOLLOWING DIAGNOSIS: No Plan Time Spent: Less than 30 Minutes
[2017-12-26 10:58] VITALS: BP 98/52
[2017-12-26] MEDS ORDERED: METRONIDAZOLE 500 MG TABLET PO SCH (15:00)
[2017-12-26] MEDS ORDERED: CIPROFLOXACIN HCL 500 MG TABLET PO SCH (22:00)
== END 2017-12-26 12:30 | disposition home or self-care (01) | DRG 392 ==
LOC: ER 13:59 → EH 16:44 → INTOOBSV 16:44 → OBSVTOIN 17:07 → 2N 22:40
PROVIDERS: ADMIT Internal Medicine; ATTEND Internal Medicine
DX: K57.92 Diverticulitis of intestine, part unspecified, without perforation or abscess without bleeding (principal); L73.9 Follicular disorder, unspecified; Z98.51 Tubal ligation status; Z91.041 Radiographic dye allergy status; Z79.899 Other long term (current) drug therapy
CPT/HCPCS: 36415; 80048; 80053; 81001; 81025; 85025; 85027; 96361; 96374; 99285; J0744; J1650; J2270; J2405; J2543; J3490; J7030; J7120; S0119

== ENCOUNTER → 2017-12-23 | Outpatient (CLI) | payer MEDICAID ==
--- NOTE | 2017-12-23 13:48 | RADIOLOGY REPORT (SQ) ---
EXAM DESCRIPTION: CT ABD/PELVIS ORAL ONLY COMPLETED DATE/TIME: 12/23/2017 1:35 pm REASON FOR STUDY: DIVERTICULITIS W/O HEMATURIA K57.30 DVRTCLOS OF LG INT W/O PERFORATION OR ABSCESS W/O BLE COMPARISON: CT abdomen pelvis 12/16/2017 TECHNIQUE: CT scan of the abdomen and pelvis performed without intravenous contrast. Patient drank oral contrast. Images reviewed with lung, soft tissue, and bone windows. Reconstructed coronal and sagittal MPR imag es reviewed. All images stored on PACS. All CT scanners at this facility use dose modulation, iterative reconstruction, and/or weight based d osing when appropriate to reduce radiation dose to as low as reasonably achievable (ALARA). [facility]: Dose Right [facility]: CareDose [facility]: Dose Right [facility]: Teradose 4D [facility]: [employer] RADIATION DOSE: 4.4mGy. LIMITATIONS: None. FINDINGS: On axial images 53-59, and coronal images 31 through 38, 8 persistent right-sided colonic inflamed diverticulum is present adjacent to the ileocecal valve. No discrete abscess. No adjacent extraluminal air. Inflammatory stranding is present adjacent to the inflamed diverticulum in the rig ht retroperitoneum. There is no CT evidence of bowel obstruction. Patient drank oral contrast. Scattered descending and sigmoid colon diverticuli are present without CT signs of acute diverticulitis. These results were discussed with Dr. Daley, 12/23/2017, 1340 hours. LOWER CHEST: No significant findings. No nodules or infiltrates. NON-CONTRASTED LIVER, SPLEEN, ADRENALS: Evaluation limited by lack of IV contrast. No identified sign ificant masses. PANCREAS: No masses. No peripancreatic inflammatory changes. GALLBLADDER: No identified stones by CT criteria. No inflammatory changes to suggest cholecystitis. RIGHT KIDNEY AND URETER: No suspicious masses. Assessment limited by lack of IV contrast. No signif icant calcifications. No hydronephrosis or hydroureter. LEFT KIDNEY AND URETER: No suspicious masses. Assessment limited by lack of IV contrast. No signifi cant calcifications. No hydronephrosis or hydroureter. AORTA AND RETROPERITONEUM: No aneurysm. No retroperitoneal masses or adenopathy. BOWEL AND PERITONEAL CAVITY: As above APPENDIX: Normal. PELVIS, BLADDER, AND ABDOMINAL WALL:No abnormal masses. No free fluid. Bladder normal. BONES: No significant findings. OTHER: No other significant finding. IMPRESSION: Persistent inflammation along the ascending colon in the area of diverticulitis. No abs cess. No free air or fluid. Results discussed with the ordering physician as above. COMMENT: Quality ID # 436: Final reports with documentation of one or more dose reduction techniques (e.g., Automated exposure control, adjustment of the mA and/or kV according to patient size, use of iterative reconstruction technique) TECHNICAL DOCUMENTATION: JOB ID: [id number] [employer]- All Rights Reserved Reading location - IP/workstation name: [email or web address]
== END ==
LOC: RAD 10:39
PROVIDERS: ATTEND Internal Medicine Gastroenterology
DX: K57.30 Diverticulosis of large intestine without perforation or abscess without bleeding (principal)
CPT/HCPCS: 74176